=== PATIENT | male | born 1945 | race Caucasian/White ===

== ENCOUNTER 2023-01-12 16:56 | Emergency (ER) | payer OTHER ==
[~2023-01-12] VITALS: Ht 180.3 cm; Wt 90.7 kg
[2023-01-12] MEDS ORDERED: LIDOCAINE 4% ADH..PATCH TP ONE (17:30)
[2023-01-12] MEDS ORDERED: KETOROLAC 15MG/ML VIAL (15MG/ML) IM ONE (17:30)
[2023-01-12 18:31] VITALS: BP 133/74; PULSE 70; RESP 16; O2SAT 97
== END 2023-01-12 18:32 | disposition home or self-care (01) ==
LOC: EDH 16:56
DX: S22.32XA Fracture of one rib, left side, initial encounter for closed fracture (principal); V89.2XXA Person injured in unspecified motor-vehicle accident, traffic, initial encounter; Y93.89 Activity, other specified; Y92.89 Other specified places as the place of occurrence of the external cause; Y99.8 Other external cause status
CPT/HCPCS: 99284; 71045; 71100; 96372; 93005; J1885

== ENCOUNTER → 2024-02-22 | Outpatient (CLI) | payer MEDICARE ==
--- NOTE | 2024-02-22 15:36 | HMCSR ---
APPROVED REPORT EXAM: Two-dimensional and M-mode echocardiogram with Doppler and color Doppler. 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 2D Dimensions RVDd4.8 cmLVEF(%)62.3 (>50%)LVED Vol(simp.)146.0 mL IVSd0.5 (0.7-1.1cm)FS(%)34 %LVES Vol(simp.)44.4 mL LVDd5.3 (3.8-5.6cm)LA (2D)4.7 (1.6-4.0cm)LVEF(%, simp.)70 % PWd1.2 (0.7-1.1cm)Ao Root(2D)3.4 (2.0-3.7cm)LA ESV INDEX (4CH)30.80 mL/m2 IVSs1.1 cmLVOT diam2.5 (1.8-2.4cm)LA ESV INDEX (2CH)42.20 mL/m2 LVDs3.5 (2.5-4.0cm)LA ESV INDEX (BP)37.30 mL/m2 PWs1.5 cm M-Mode Dimensions EPSS0.5 cm LA (MM)4.2 (1.6-4.0cm) Ao Root(MM)3.3 (2.0-3.7cm) Aortic Valve AoV VTI0.4 mAo Mean GR7.0 mmHgLVOT VTI0.26 m LYNDSAY (VMAX)3.1 cm2AVA (VTI) 3.1 cm2 Mitral Valve MV E Vmax78.6 cm/sDECEL Urbz384 ms MV A Vmax68.9 cm/sP 1/2 T74 ms E/A ratio1.1MVA (PHT)3.0 cm2 TDI E/E' Medial9.9E/E' Lateral8.4 Medial E' Peak V7.90 cm/sLateral E' Peak V9.40 cm/s Tricuspid Valve RAP (EST) 3 mmHgRVSP3.0 mmHg Left Ventricle The left ventricle is normal size. There is normal LV segmental wall motion. There is normal left ashley tricular wall thickness. The LVEF is > 65%. The left ventricular diastolic function is normal. Right Ventricle The right ventricle is mildy dilated. The right ventricular systolic function is normal. Atria The left atrium is mildly dilated. The right atrium is moderately dilated. Aortic Valve The aortic valve is normal in structure. Trace of aortic regurgitation is present. There is no aortic valvular stenosis. Mitral Valve The mitral valve is normal in structure. There is no mitral valve regurgitation noted. There is no mi tral valve stenosis. Tricuspid Valve The tricuspid valve is normal in structure. There is no tricuspid valve regurgitation noted. Pulmonic Valve The pulmonary valve is normal in structure. There is no pulmonic valvular regurgitation. Great Vessels The aortic root is normal in size at the annyulus but appears mildly dilated above the annulus measur ing 3.9 cm. Ascending aorta is mildly dilated measuring 4.4 cm The IVC is normal in size and collapse s >50% with inspiration. Pericardium There is no pericardial effusion. Other Information Quality : Adequate Conclusion The LVEF is > 65%. The aortic root is normal in size at the annyulus but appears mildly dilated above the annulus measur ing 3.9 cm.
== END | disposition home or self-care (01) ==
LOC: RAH 12:40
PROVIDERS: ATTEND Thoracic Surgery (Cardiothoracic Vascular Surgery)
DX: I71.20 Thoracic aortic aneurysm, without rupture, unspecified (principal); I51.7 Cardiomegaly
CPT/HCPCS: 93306